=== PATIENT | female | born 1965 | race Two or more races ===

== ENCOUNTER 2017-08-11 11:15 | Inpatient (IN) | payer OTHER ==
[~2017-08-11] VITALS: Ht 152.4 cm; Wt 50.8 kg
[2017-08-11] MEDS ORDERED: ZOLOFT50 MG PO (13:59)
[2017-08-11] MEDS ORDERED: SYNTHROID112 MCG PO (13:59)
[2017-08-11] MEDS ORDERED: CLONAZEPAM1 MG PO (13:59)
[2017-08-17] MEDS ORDERED: CODE1TAB37 PO (08:42)
[2017-08-17] MEDS ORDERED: KETO10TA2 PO (08:42)
[2017-08-17] MEDS ORDERED: NORFLEX100MG PO (08:42)
== END 2017-08-17 10:02 | disposition home or self-care (01) | DRG 743 ==
LOC: O/R 08-14 08:15 → OB/GYN 08-14 08:15 → RECOVERY 08-14 10:00 → OB/GYN 08-14 15:19
PROVIDERS: Obstetrics & Gynecology
PROC: 0UT70ZZ Resection of Bilateral Fallopian Tubes, Open Approach (ICD-10-PCS; 2017-08-14)
PROC: 0UT20ZZ Resection of Bilateral Ovaries, Open Approach (ICD-10-PCS; 2017-08-14)
PROC: 0TJB8ZZ Inspection of Bladder, Via Natural or Artificial Opening Endoscopic (ICD-10-PCS; 2017-08-14)
PROC: 0UT90ZZ Resection of Uterus, Open Approach (ICD-10-PCS; principal; 2017-08-14 10:00)
DX: D25.1 Intramural leiomyoma of uterus (principal); D25.0 Submucous leiomyoma of uterus; N72 Inflammatory disease of cervix uteri; N80.0 Endometriosis of uterus; N94.5 Secondary dysmenorrhea; N92.0 Excessive and frequent menstruation with regular cycle; N83.11 Corpus luteum cyst of right ovary; N83.292 Other ovarian cyst, left side